=== PATIENT | male | born 1990 | race Hispanic/Latino ===

== ENCOUNTER 2022-09-14 20:43 | Emergency (ER) | payer SELFPAY ==
[2022-09-14 21:06] VITALS: BP 141/90; PULSE 72; RESP 16; TEMP 36.4; O2SAT 100
[2022-09-14 23:44] LABS: Basophils Percent Auto 0.3 % (0.2-1.2); Eosinophils Percent Auto 0.3 % (0-4.4); Hematocrit 52.2 % (42.0-52.0); Hemoglobin 17.1 g/dL (14.0-18.0); Immature Granulocyte Absolute 0.03 K/mm3 (0.00-0.031); Immature Granulocyte Percent A 0.3 % (0-0.5); Lymphocytes Absolute Auto 1.13 K/mm3 (0.9-3.2); Lymphocytes Percent Auto 12.6 % (18.3-44.2); Mean Corpuscular HGB Conc 32.8 g/dl (32-36); Mean Corpuscular Hemoglobin 28.1 pg (26-34); Mean Corpuscular Volume 85.7 fl (80-100); Mean Platelet Volume 9.9 fl (7.4-10.4); Monocytes Absolute Auto 0.4 K/mm3 (0.1-0.6); Monocytes Percent Auto 4.5 % (2.6-8.5); Neutrophils Absolute Auto 7.4 K/mm3 (1.3-6.7); Platelet Count Result 256 k/mm3 (150-375); Red Blood Count 6.09 M/mm3 (4.6-6.20); Red Cell Distribution Width 12.9 % (11.5-14.5)
[2022-09-14 23:54] LABS: Alanine Aminotransferase 27 U/L (6-50); Albumin Level 4.9 g/dL (3.5-5.1); Alkaline Phosphatase 84 U/L (38-126); Anion Gap 13 mmol/L (8-16); Aspartate Amino Transferase 21 U/L (17-59); Bilirubin,Total 0.8 mg/dL (0.2-1.3); Blood Urea Nitrogen 10 mg/dL (9-20); Calcium 8.9 mg/dL (8.4-10.2); Carbon Dioxide 24 mmol/L (22-30); Chloride 103 mmol/L (98-107); Estimated CRCL calculation 158 ml/min; Estimated Glomerular Filt Rate > 60; Glucose 174 mg/dL (65-110); Lipase 75 U/L (23-300); Potassium 3.7 mmol/L (3.4-5.0); Sodium 140 mmol/L (137-145)
[2022-09-15] VITALS (12 sets, daily range): BP systolic 138–145; BP diastolic 89–94; PULSE 74–91; RESP 18–27; O2SAT 94–99
--- NOTE | 2022-09-15 00:12 | ED.NAVMDI ---
HPI - Nausea/Vomiting/Diarrhea General Chief complaint: Nausea/Vomiting/Diarrhea Stated complaint: VOMITING/DIZZINESS Time Seen by Provider: 09/14/22 23:30 History of Present Illness HPI Narrative: 31-year-old male no medical problems presents to the emergency room for intermittent vomiting and diarrhea for 1 month. Patient states he has been taking Tylenol for body aches and headache. 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 States he has a GI provider in [place] due to chronic blood in his stool, and has had a colonoscopy where polyps were found and removed. Patient reports abdominal cramping associated with his vomiting and diarrhea but no pain. Denies back pain. Denies fevers. Related Data Allergies Allergy/AdvReac Type Severity Reaction Status Date / Time No Known Allergies Allergy Verified 09/15/22 00:22 Review of Systems Review of Systems: CONSTITUTIONAL: Denies fever, chills, or sweats. EYES: Denies visual changes, redness, or discharge. ENT: Denies rhinorrhea, congestion, sore throat, or otalgia. CARDIOVASCULAR: Denies chest pain, palpitations, or edema. RESPIRATORY: Denies cough or dyspnea. GASTROINTESTINAL: Reports vomiting and diarrhea GENITOURINARY: Denies dysuria or hematuria. SKIN: Denies rash or itching. MUSCULOSKELETAL: Denies back pain, joint pain, or myalgia. NEUROLOGIC: Denies headache, numbness, dizziness, or weakness. PSYCHIATRIC: Denies anxiety or depression. Exam Narrative: GENERAL: Well-appearing, well-nourished, no physical limitations, and in no acute distress. HEAD: Normocephalic, atraumatic. EYES: Conjunctivae normal, PERRLA and EOMI. CHEST: Clear to auscultation. No respiratory distress. No wheezes rales or rhonchi. HEART: Regular rate and rhythm. No murmur heard. Normal peripheral pulses. ABDOMEN: Soft, nontender, nondistended, normal active bowel sounds. BACK: No CVA tenderness EXTREMITIES: Normal range of motion. No edema. No clubbing or cyanosis SKIN: Warm, dry, no rash. No noted wounds NEURO: No focal deficits. Alert and oriented x3. MAEW. CN's II-XI intact bilaterally, normal gait PSYCH: Cooperative. Normal mood and affect. Course Vital Signs Vital signs: Vital Signs Temperature 36.4 C L 09/14/22 21:06 Pulse Rate 72 09/14/22 21:06 Respiratory Rate 16 09/14/22 21:06 Blood Pressure 141/90 H 09/14/22 21:06 Pulse Oximetry 100 09/14/22 21:06 Oxygen Delivery Room Air 09/14/22 21:06 Temperature 36.4 C L 09/14/22 21:06 Pulse Rate 74 09/15/22 00:25 Respiratory Rate 26 H 09/15/22 00:25 Blood Pressure 145/93 H 09/15/22 00:25 Pulse Oximetry 95 09/15/22 00:25 Oxygen Delivery Room Air 09/14/22 21:06 MDM - Nausea/Vomiting/Diarrhea Lab Data Result diagrams: 09/14/22 22:46 09/14/22 22:46 Labs: Lab Results 09/14/22 09/14/22 09/15/22 Range/Units 22:46 22:46 00:06 WBC 9.0 (4.5-10.0) K/mm3 RBC 6.09 (4.6-6.20) M/mm3 Hgb 17.1 (14.0-18.0) g/dL Hct 52.2 H (42.0-52.0) % MCV 85.7 (80-100) fl MCH 28.1 (26-34) pg MCHC 32.8 (32-36) g/dl RDW 12.9 (11.5-14.5) % Plt Count 256 (150-375) k/mm3 MPV 9.9 (7.4-10.4) fl Immature Gran % (Auto) 0.3 (0-0.5) % Neut % (Auto) 82.0 H (45.5-73.1) % Lymph % (Auto) 12.6 L (18.3-44.2) % [place] % (Auto) 4.5 (2.6-8.5) % Eos % (Auto) 0.3 (0-4.4) % Baso % (Auto) 0.3 (0.2-1.2) % Lymph # (Auto) 1.13 (0.9-3.2) K/mm3 [place] # (Auto) 0.4 (0.1-0.6) K/mm3 Eos # (Auto) 0.0 (0-0.3) K/mm3 Baso # (Auto) 0.0 (0.0-0.1) K/mm3 Abs Immat Gran (auto) 0.03 (0.00-0.031) K/mm3 Absolute Neuts (auto) 7.4 H (1.3-6.7) K/mm3 Absolute Nucleated RBC 0.0 (0.0-0.012) K/mm3 Nucleated RBC % 0.0 (0.0-0.2) % Sodium 140 (137-145) mmol/L Potassium 3.7 (3.4-5.0) mmol/L Chloride 103 (98-107) mmol/L Carbon Dioxide 24 (22-30) mmol/L Anion Gap 13 (8-16) mmol/L BUN
[2022-09-15] MEDS: SODIUM CHLORIDE 0.9% IV 1,000 ML 999 ML IV CONT ×2 (00:23→01:45)
[2022-09-15 00:24] LABS: Appearance Urine Clear (Clear); Bilirubin Urine Negative (Negative); Blood Urine 1+ (Negative); Color Urine Yellow (Yellow); Glucose Urine UA 2+ mg/dL (Negative); Ketones Urine 4+ mg/dL (Negative); Leukocyte Esterase Ur Negative LEU/UL (Negative); Nitrate Urine Negative (Negative); Protein Urine 1+ mg/dL (Negative); Specific Grav Ur 1.025 (1.001-1.035); Urobilinogen Urine 0.2 mg/dL (<2.0); pH Urine 6.5 (5.0-9.0)
[2022-09-15] MEDS: PANTOPRAZOLE SODIUM IV 40 MG VIAL IV PUSH (00:24)
[2022-09-15] MEDS: ONDANSETRON INJ 4 MG/2 ML VIAL IV PUSH (00:24)
[2022-09-15] MEDS: DICYCLOMINE HCL INJ 20 MG/2 ML VIAL IM (00:30)
[2022-09-15 00:36] LABS: Mucus Urine Rare /lpf; WBC Urine 0-3 /hpf
[2022-09-15 00:44] LABS: Add Urine Microscopic? YES
== END 2022-09-15 02:43 | disposition home or self-care (01) ==
PROVIDERS: Emergency Medicine; Emergency Provider Nurse Practitioner Family
DX: K52.9 Noninfective gastroenteritis and colitis, unspecified (principal)
CPT/HCPCS: 36415; 80053; 81001; 83690; 85025; 96361; 96372; 96374; 96375; 99284; C9113; J0500; J2405; J7030

== ENCOUNTER 2023-01-18 13:19 | Emergency (ER) | payer SELFPAY ==
--- NOTE | ~2023-01-18 | XR_ITS ---
EXAMINATION: XR chest 2V 01/18/2023 14:05 INDICATION: Cough and fever. Headache. PROCEDURE: 2 view chest COMPARISON: No prior studies for comparison. FINDINGS: The lungs are clear. The cardiomediastinal silhouette is within normal limits. There are no pleural effusions. There is no pneumothorax suspected. IMPRESSION: 1: NO ACUTE CARDIOPULMONARY DISEASE. Reviewed, dictated and finalized at location A.
[2023-01-18 13:25] VITALS: BP 134/90; PULSE 122; RESP 18; TEMP 38.1; O2SAT 96
--- NOTE | 2023-01-18 13:48 | ED.URI ---
HPI - URI/Sore Throat General Chief Complaint: Upper Respiratory Infection Stated Complaint: fever, sob Time Seen by Provider: 01/18/23 13:48 Source: patient Mode of arrival: ambulatory Limitations: no limitations History of Present Illness HPI Narrative: The patient is a 32-year-old male presenting to the emergency department for evaluation of fever and sore throat. Patient states that he has felt unwell over the past 12 hours with sore throat, fever up to 102.5 degrees. Patient denies any significant cough but does report mild shortness of breath. Denies chest pain. He denies wheezing, productive cough or hemoptysis. No pleuritic pain. He denies leg swelling or calf pain. He denies recent long car or air travel or history of coagulopathy. Patient denies ear pain but does report mild congestion. He denies recent sick contacts. Patient denies nausea, vomiting. He denies any significant headache or neck pain. Denies focal weakness or numbness. He denies urinary symptoms. Related Data Allergies Allergy/AdvReac Type Severity Reaction Status Date / Time No Known Allergies Allergy Verified 09/15/22 00:22 Review of Systems Review of Systems: CONSTITUTIONAL: Reports fever and chills EYES: Denies visual changes, redness, or discharge. ENT: Reports runny nose, congestion and sore throat CARDIOVASCULAR: Denies chest pain, palpitations, or edema. RESPIRATORY: Denies cough, reports mild shortness of breath GASTROINTESTINAL: Denies abdominal pain, nausea, vomiting, or diarrhea. GENITOURINARY: Denies dysuria or hematuria. SKIN: Denies rash or itching. MUSCULOSKELETAL: Denies back pain, joint pain, or myalgia. NEUROLOGIC: Denies headache, numbness, or weakness. [facility] Surgical History Surgical History (Updated 01/18/23 @ 14:24 by Karen Clemens MD) H/O hernia repair Social History Social History (Updated 01/18/23 @ 14:24 by Karen Clemens MD) Smoking status: Never smoker Alcohol intake: never Substance use: never Gender identity (if verbalized by the patient): Male Exam Narrative: GENERAL: Awake, alert, conversant HEAD: Normocephalic, atraumatic. EYES: PERRLA and EOMI. ENT: Nares clear, no rhinorrhea or epistaxis. Mucous membranes moist. Uvula is midline. There is erythema and petechia of the posterior oropharynx without exudate. No deviation of the pterygoid arches. No trismus. NECK: Supple. Mild cervical lymphadenopathy bilaterally. No thyromegaly. CHEST: No respiratory distress, breathing even and non labored, lungs are clear to auscultation bilaterally without wheezing, rhonchi, rales HEART: Tachycardic rate, sinus rhythm ABDOMEN:Non distended, non tender EXTREMITIES: Normal range of motion. No edema. SKIN: Warm, dry, no rash. NEURO:No focal deficits. Alert and oriented x3 Course Vital Signs Vital signs: Vital Signs Temperature 38.1 C H 01/18/23 13:25 Pulse Rate 122 H 01/18/23 13:25 Respiratory Rate 18 01/18/23 13:25 Blood Pressure 134/90 01/18/23 13:25 Pulse Oximetry 96 01/18/23 13:25 Oxygen Delivery Room Air 01/18/23 13:25 Temperature 38.1 C H 01/18/23 13:25 Pulse Rate 122 H 01/18/23 13:25 Respiratory Rate 18 01/18/23 13:25 Blood Pressure 134/90 01/18/23 13:25 Pulse Oximetry 96 01/18/23 13:25 Oxygen Delivery Room Air 01/18/23 13:25 MDM - URI/Sore Throat MDM Narrative Medical decision making narrative: Medical decision making narrative: -Presentation: Patient is a 32-year-old male presenting for evaluation of fever, sore throat, mild shortness of breath. At the time of assessment, patient is mildly tachycardic and febrile. Normotensive. No hypoxia. Lungs are clear to auscultation bilaterally. Throat is mildly erythematous without exudate. -DDX includes but is not limited to: Viral infection, COVID, pneumonia, strep pharyngitis, influenza, less likely to be PE, ACS -Co-morbidities complicating care: None -Social determinants of he
[2023-01-18 14:12] LABS: Basophils Percent Auto 0.3 % (0.2-1.2); Eosinophils Percent Auto 0.2 % (0-4.4); Hematocrit 52.9 % (42.0-52.0); Hemoglobin 17.5 g/dL (14.0-18.0); Immature Granulocyte Absolute 0.05 K/mm3 (0.00-0.031); Immature Granulocyte Percent A 0.6 % (0-0.5); Lymphocytes Absolute Auto 0.46 K/mm3 (0.9-3.2); Lymphocytes Percent Auto 5.4 % (18.3-44.2); Mean Corpuscular HGB Conc 33.1 g/dl (32-36); Mean Corpuscular Hemoglobin 27.9 pg (26-34); Mean Corpuscular Volume 84.2 fl (80-100); Mean Platelet Volume 9.5 fl (7.4-10.4); Monocytes Absolute Auto 0.7 K/mm3 (0.1-0.6); Monocytes Percent Auto 7.9 % (2.6-8.5); Neutrophils Absolute Auto 7.4 K/mm3 (1.3-6.7); Neutrophils Percent Auto 85.6 % (45.5-73.1); Platelet Count Result 223 k/mm3 (150-375); Red Blood Count 6.28 M/mm3 (4.6-6.20); Red Cell Distribution Width 13.8 % (11.5-14.5); White Blood Count 8.6 K/mm3 (4.5-10.0)
[2023-01-18] MEDS: ACETAMINOPHEN 500 MG TABLET 1000 MG PO (14:13)
[2023-01-18 14:18] LABS: Anion Gap 7 mmol/L (8-16); Blood Urea Nitrogen 7 mg/dL (9-20); Calcium 9.4 mg/dL (8.4-10.2); Carbon Dioxide 28 mmol/L (22-30); Chloride 98 mmol/L (98-107); Estimated CRCL calculation 130 ml/min; Estimated Glomerular Filt Rate > 60; Glucose 117 mg/dL (65-110); Potassium 3.7 mmol/L (3.4-5.0); Sodium 133 mmol/L (137-145)
[2023-01-18] MEDS: SODIUM CHLORIDE 0.9% IV 1,000 ML 999 ML IV CONT (14:27)
[2023-01-18 14:31] LABS: Strep Group A RT-PCR NOT DETECTED (Negative)
[2023-01-18 14:43] LABS: Influenza A QL RT-PCR Negative (Negative); Influenza B QL RT-PCR Negative (Negative); RSV RNA, RT-PCR Negative (Negative); SARS-CoV-2 RNA PCR Positive
== END 2023-01-18 15:27 | disposition home or self-care (01) ==
PROVIDERS: Emergency Provider Emergency Medicine
DX: U07.1 COVID-19 (principal); Z86.16 Personal history of COVID-19; Z28.310 Unvaccinated for COVID-19
CPT/HCPCS: 36415; 71046; 80048; 85025; 87637; 87651; 96360; 99283; A9270; J7030